=== PATIENT | female | born 1935 | race Caucasian/White ===

== ENCOUNTER 2017-08-26 09:21 | Observation (INO) | payer OTHER, MEDICARE ==
[~2017-08-26] VITALS: Ht 165.1 cm; Wt 66.0 kg
[~2017-08-26 09:21] MED LIST: MOTRIN 200200 MG/TAB PO; PRINIVIL2.5 MG PO; TYLENOL 325MG325 MG PO
[2017-08-26] MEDS ORDERED: PRINZIDE 12.5 M1 TA1 PO (09:27)
[2017-08-26] MEDS ORDERED: ULTRAM 50MG TAB50 MG PO (09:28)
[2017-08-26] MEDS ORDERED: NORCO 325 MG-51 TAB PO (09:28)
[2017-08-26] MEDS ORDERED: ZOFRAN 4MG T4 MG/TAB PO (09:29)
[2017-08-26 11:24] LABS: BASO # 0.1 (0.0-0.2); BASO % 0.8 % (0.0-2.0); EOS # 0.1 (0.0-0.7); EOS % 1.4 % (0-4.0); GRAN # 5.3 (1.4-6.5); HEMATOCRIT 39.3 % (37.0-47.0); HEMOGLOBIN 13.2 g/dl (12.5-16.0); LYMPH # 0.6 (1.2-3.4); LYMPH % 9.2 % (20.0-51.0); MEAN CELL VOLUME 87 fl (80.0-100.0); MEAN CORPUSCULAR HEMOGLOBIN 29 pg (27.0-31.0); MEAN CORPUSCULAR HGB CONC 34 g/dl (33.0-37.0); MONO # 0.5 (0.1-0.6); MONO % 7.8 % (1.7-9.3); PLATELET COUNT 373 K/mm3 (130-400); RED BLOOD COUNT 4.54 M/mm3 (4.10-5.30); REDCELL DISTRIBUTION WIDTH-CV 13.1 % (11.5-14.5)
[2017-08-26 11:33] LABS: ALBUMIN 4.1 gm/dL (3.5-5.0); BILIRUBIN,TOTAL 0.5 mg/dL (0.0-1.0); C-REACTIVE PROTEIN 2.4 mg/dL (0.0-0.9); CALCIUM 9.3 mg/dL (8.4-10.2); CREATININE, serum 0.59 mg/dL (0.52-1.25); POTASSIUM 3.7 mmol/L (3.4-5.0); TOTAL PROTEIN 7.3 gm/dL (6.4-8.2)
[2017-08-26 13:03] LABS: COLLECTION METHOD CLEAN CATCH
[2017-08-26] MEDS ORDERED: ADVIL200 MG PO (13:15)
[2017-08-26 13:17] LABS: PH 8 (5-8); URINE APPEARANCE Clear; URINE BILIRUBIN Negative (NEGATIVE); URINE BLOOD Negative (NEGATIVE); URINE COLOR Straw; URINE GLUCOSE Negative (NEGATIVE); URINE KETONE Trace (NEGATIVE); URINE LEUKOCYTE ESTERASE Negative (NEGATIVE); URINE NITRATE Negative (NEGATIVE); URINE PROTEIN(semi-quant) Negative (NEGATIVE); URINE UROBILINOGEN Negative (NEGATIVE)
[2017-08-26 13:42] LABS: URINE RBC 0-2 /hpf
[2017-08-26 16:02] VITALS: BP 178/71; PULSE 98; TEMP 98.8
[2017-08-26 16:04] VITALS: BP 178/71; PULSE 98; TEMP 98.8
[2017-08-26 19:22] VITALS: BP 164/97; PULSE 110; TEMP 98.7
[2017-08-26 23:54] VITALS: BP 144/77; PULSE 89; TEMP 98.2
[2017-08-27 04:08] VITALS: BP 148/75; PULSE 86; TEMP 98.6
[2017-08-27 07:02] LABS: CALCIUM 8.6 mg/dL (8.4-10.2); CREATININE, serum 0.67 mg/dL (0.52-1.25); POTASSIUM 3.6 mmol/L (3.4-5.0)
[2017-08-27 07:59] VITALS: BP 182/81; PULSE 100; TEMP 98.7
[2017-08-27] MEDS ORDERED: FLEXERIL 1010 MG/TAB PO (10:12)
[2017-08-27] MEDS ORDERED: ZESTRIL 20MG TA20 MG PO (10:13)
[2017-08-27] MEDS ORDERED: MIRALAX PA17 GM/Dose PO (10:18)
[2017-08-27 11:36] VITALS: BP 163/65; PULSE 89; TEMP 97.8
[2017-08-27] MEDS ORDERED: PROTONIX 40MG T40 MG PO (13:42)
[2017-08-27] MEDS ORDERED: COLACE 100100 MG/CAP PO (13:44)
== END 2017-08-27 16:41 | disposition home or self-care (01) ==
LOC: COL.ER 09:21 → MEDICAL 12:20
PROVIDERS: Emergency Medicine; Family Medicine
DX: S32.19XA Other fracture of sacrum, initial encounter for closed fracture (principal); S32.511A Fracture of superior rim of right pubis, initial encounter for closed fracture; E87.1 Hypo-osmolality and hyponatremia; I10 Essential (primary) hypertension; K59.00 Constipation, unspecified; K21.9 Gastro-esophageal reflux disease without esophagitis; M41.86 Other forms of scoliosis, lumbar region; N28.1 Cyst of kidney, acquired
CPT/HCPCS: G0378; G8978-GP; G8979-GP; G8987-GO; G8988-GO; J1885; J2360; J3010; J7030

== ENCOUNTER 2019-02-11 19:17 | Emergency (ER) | payer MEDICARE, OTHER ==
[~2019-02-11] VITALS: Ht 165.1 cm; Wt 63.2 kg
[~2019-02-11 19:17] MED LIST changes: +ADVIL200 MG PO; +COLACE 100100 MG/CAP PO; +FLEXERIL 1010 MG/TAB PO; +MIRALAX PA17 GM/Dose PO; +NORCO 325 MG-51 TAB PO; +PRINZIDE 12.5 M1 TA1 PO; +PROTONIX 40MG T40 MG PO; +ULTRAM 50MG TAB50 MG PO; +ZESTRIL 20MG TA20 MG PO; +ZOFRAN 4MG T4 MG/TAB PO
[2019-02-11 19:24] VITALS: TEMP 97.7
[2019-02-11 21:33] VITALS: BP 147/64; PULSE 69
== END 2019-02-11 21:34 | disposition home or self-care (01) ==
LOC: COL.ER 19:17
DX: S60.222A Contusion of left hand, initial encounter (principal); Z20.3 Contact with and (suspected) exposure to rabies; Z90.49 Acquired absence of other specified parts of digestive tract; Z87.891 Personal history of nicotine dependence; W55.81XA Bitten by other mammals, initial encounter
CPT/HCPCS: 90375

== ENCOUNTER 2019-02-14 10:13 | Outpatient (RCR) | payer MEDICARE ==
[~2019-02-14] VITALS: Ht 165.1 cm; Wt 63.2 kg
[2019-02-25 10:52] VITALS: BP 145/57; PULSE 62; TEMP 97.7
== END 2019-05-15 | disposition home or self-care (01) ==
LOC: COL.ER → EDSTATUS 10:32 → COL.ER 10:32
DX: Z23 Encounter for immunization (principal)

== ENCOUNTER 2022-07-27 09:50 | Outpatient (RCR) | payer MEDICARE ==
[~2022-07-27] VITALS: Ht 160 cm; Wt 66.8 kg
[2022-07-27 10:45] VITALS: BP 180/70; PULSE 91; TEMP 98
[2022-07-27] MEDS ORDERED: NORVASC 5MG5 MG/TAB PO (10:53)
[2022-07-27] MEDS ORDERED: PRINIVIL40 MG PO (10:54)
[2022-07-27] MEDS ORDERED: PEPCID 20MG TAB20 MG PO (10:55)
[2022-07-27] MEDS ORDERED: PROLIA60 MG/ML (10:55)
--- NOTE | 2022-07-27 11:00 | NUR ---
Pt escorted out to ED entrance following rabies vac. Gait steady. Pt tolerated injection without issue.
== END 2022-07-27 11:07 | disposition home or self-care (01) ==
LOC: EUO 09:50
DX: Z20.3 Contact with and (suspected) exposure to rabies (principal)

== ENCOUNTER 2023-08-20 14:54 | Outpatient (CLI) | payer MEDICARE ==
[~2023-08-20] VITALS: Ht 160 cm; Wt 61.9 kg
[~2023-08-20 14:54] MED LIST changes: +NORVASC 5MG5 MG/TAB PO; +PEPCID 20MG TAB20 MG PO; +PRINIVIL40 MG PO; +PROLIA60 MG/ML SQ
[2023-08-20] MEDS ORDERED: TYLENOL 500MG500 MG PO (15:19)
[2023-08-20] MEDS ORDERED: CLARITIN 1010 MG/TAB PO (15:19)
[2023-08-20 15:27] VITALS: BP 161/62; PULSE 91; TEMP 97.6
[2023-08-20] MEDS ORDERED: Denosumab 60 MG/ML SYRINGE SQ ONE (15:30)
--- NOTE | 2023-08-20 15:41 | NUR ---
Pt tolerated prolia without issue. She is escorted out to entrance, gait steady.
== END 2023-08-20 15:41 | disposition home or self-care (01) ==
LOC: EUO 14:54
DX: M81.0 Age-related osteoporosis without current pathological fracture (principal)
CPT/HCPCS: J0897